=== PATIENT | male | born 1965 | race Caucasian/White ===

== ENCOUNTER → 2017-12-13 10:17 | Outpatient (CLI) | payer OTHER, SELFPAY ==
--- NOTE | 2017-12-13 | OV.WND_ITS ---
Progress Note Details Patient Name: Abdulkadir Tiwari Patient Number: [id number] PatientPatientDate: 12/13/2017 Clinician: Luz Marina Singh Physician / Station [employer] Specialist: Pranav Keith SUBJECTIVE Chief Complaint This information was obtained from the patient Non-healing wound to left foot Allergies NKDA HPI This information was obtained from the patient 12/13/17. Seen by Dr. Keith. The patient is new to our clinic and presents with a left 1st toe injury and concern for an ulcer based on his ER visit note. He had diabetes that 's difficult to manage due to being homeless and states he walks for long periods most days. He does not report trauma to the toe but notes the area beneath the nail became black a few days ago and the toe become somewhat swollen. He feels the swelling has nearly resolved and he does not report pain in the toe nor drainage from beneath the nail. Family History This information was obtained from the patient Unknown History - Maternal Grandparents, Father, Paternal Grandparents, Sibling , Child, Cancer - Mother General Notes: Patient was adopted. Limited knowledge of Biologically mother Social History This information was obtained from the patient Current every day smoker, Caffeine Use, Children - 3, Cultural, Alevism, or Language Concerns, Financial Concerns - Homeless, unemployed, Homeless, Marital Status - , Occupation - unemployed, Tobacco Use (deprecated) - 1ppd, Transport Concerns - no vehicle Past Medical History This information was obtained from the patient Patient has a medical history of: Type II Diabetes Hepatitis C series Depression Hypothyroidism Complaints and Symptoms This information was obtained from the patient Patient complains of: General Notes: I have reviewed and concur with the Review of Systems and Past Family Social History documents completed by the clinician, I have reviewed and concur with the Wound Assessment document completed by the clinician Neurological: Loss of Protective Sensation Patient denies complaints or symptoms related to: Cardiovascular (Central): Irregular heart beat Cardiovascular (Central/Peripheral): Intermittent Claudication, Lower extremity (leg) resting pain, Lower extremity (leg) swelling Hematologic/Lymphatic: Bleeding Tendency Integumentary (Hair/Skin/Nails): Open Sore Psychiatric: Memory Loss General Notes: Patient unsure Additional Information Does patient have a history of Cancer? Yes? Complete all questions.: No Medications metformin 500 mg tablet oral tablet oral twice daily Humulin N NPH U-100 Insulin KwikPen 100 unit/mL (3 mL) subcutaneous subcutaneous 30 30 insulin pen subcutaneous once daily levothyroxine 125 mcg tablet oral tablet oral once daily OBJECTIVE Constitutional Vital signs reviewed and noted. Well developed. Alert. Clean appearing.. Height/ Length: 67 in (170.18 cm), Weight: 184 lbs (83.64 kgs), BMI: 28.8, Temperature: 98.9 ?F ( 37.17 ?C), Pulse: 58 bpm, Respiratory Rate: 18 breaths/min, Blood Pressure: 103/71 mmHg, Capillary Blood Glucose: 152 mg/dl, Pulse Oximetry: 97 %. Vital Signs Notes: Glucose per patient Ears, Nose, Mouth, and Throat: No clinically significant hearing loss on informal examination. Respiratory: No respiratory distress. Even respirations and without use of accessory muscles.. Cardiovascular: Pedal pulses 2+ on affected limb. Affected extremity exhibits no peripheral edema or cyanosis, is warm, and is well perfused. Capillary refill is less than 2 seconds. Gastrointestinal (GI): Non-obese. Nondistended.. Musculoskeletal: Left 1st toe nail bed echymosis without tenderness, drainage, or eythema; mild swelling, nail intact. Neurological: Cranial nerves grossly intact with symmetric function normal by informal observation.. ASSESSMENT Active Problems ICD-10 (Encounter Diagnosis) E11.9 - Type 2 diabetes mellitus without complications (Encounter Diagnosis) M79.9 - Soft tissue disorder, unspecified PLAN Additional Orders: Follow-Up Appointments Other information: If you develop fever, chills, increased pain, drainage, redness or swelling please call our office. If after hours, respond to the ER. Should you experience any significant changes in your wound(s) or have any questions regarding your home care instructions please contact the wound center @ [phone]. If after hours, contact your primary care physician or go to the hospital emergency room. Discharge from Outpatient Services. - No visible wound at this time. Scribing Attestation I attest, as the nurse, that I scribed these orders for the physician. General Notes: No need for dressing at this time. May cover with gauze for comfort. Monitor feet for changes. I've reviewed the clinician's documentation and agree with the evaluation and plan as written. Also, there's no obvious wound associated with the left toe nail bed however if the nail loosens or detaches the patient's been advised to return to clinic at that time. Electronic Signature(s) Signed By: Date: Pranav Keith MD 12/16/2017 07:01:57 Entered By: Pranav Keith on 12/16/2017 06:59:24
== END ==
PROVIDERS: PCP Family Medicine; Visit Provider Internal Medicine
DX: E11.9 Type 2 diabetes mellitus without complications (principal); M79.9 Soft tissue disorder, unspecified
CPT/HCPCS: 99213